=== PATIENT | female | born 1960 | race Caucasian/White ===

== ENCOUNTER 2018-05-18 22:10 | Emergency (ER) | payer OTHER ==
[2018-05-18] MEDS ORDERED: ONDANSETRON 4 MG/2 ML VIAL ONE (23:06)
[2018-05-18 23:44] LABS: Absolute Lymphocytes (CBC) 3.4 K/uL (0.7-4.9); Absolute Monocytes 0.7 K/uL (0.1-1.3); Absolute Neutrophil 6.1 K/uL (1.8-8.0); Eosinophils % 4.8 % (0-4.4); Lymphocytes % 31.5 % (15.3-44.8); MPV 10.2 fL (7.6-11.3); Monocytes % 6.4 % (3.3-12.3); RBC Red Blood Cell Count 5.13 M/uL (3.86-4.86)
[2018-05-18 23:57] LABS: Urine Blood NEGATIVE (NEG); Urine Glucose NEGATIVE (NEG); Urine Protein NEGATIVE (NEG); Urine Specific Gravity 1.025 (1.005-1.030); Urine pH 5.5 (5.0-7.0)
[2018-05-19 00:14] LABS: ALT/SGPT 67 U/L (12-78); AST/SGOT 45 U/L (15-37); Albumin 3.3 g/dL (3.4-5.0); Alkaline Phosphatase 183 U/L (45-117); BUN Blood Urea Nitrogen 12 mg/dL (7-18); Bicarbonate 26 mmol/L (21-32); Bilirubin Direct < 0.1 mg/dL (0-0.2); Bilirubin Total 0.3 mg/dL (0.2-1.0); Glucose Level 107 mg/dL (74-106); Lipase 104 U/L (73-393); Potassium 4.5 mmol/L (3.5-5.1); Protein, Total 7.7 g/dL (6.4-8.2); Sodium Level 141 mmol/L (136-145)
--- NOTE | 2018-05-19 02:47 | EDPHYS ---
Physician Documentation [facility] Name: Nell Barrett Age: 58 yrs Sex: Female : 1960 Arrival Date: 05/18/2018 Time: 22:10 Bed 15 Private MD: ED Physician Jomar Wong HPI: 05/18 23:06 This 58 yrs old Female presents to ER via Ambulatory with complaints of R jr8 Side Pain, Vomiting/Diarrhea. 23:06 The patient presents with abdominal pain in the right upper quadrant, right lower jr8 quadrant. Onset: The symptoms/episode began/occurred acutely, yesterday. The symptoms do not radiate. Associated signs and symptoms: Pertinent positives: nausea, vomiting, and diarrhea. The symptoms are described as stabbing. Modifying factors: The symptoms are alleviated by nothing, the symptoms are aggravated by nothing. Severity of pain: At its worst the pain was moderate in the emergency department the pain is unchanged. The patient has not experienced similar symptoms in the past. The patient has not recently seen a physician. Historical: - Allergies: 22:31 PENICILLINS; fc - Home Meds: 22:31 Wellbutrin XL 300 mg Oral Tb24 1 tab once daily [Active]; Klonopin 1 mg Oral tab 1 tab fc as needed [Active]; omeprazole 40 mg Oral cpDR 1 cap once daily [Active]; Phenergan Oral 25 mg as needed [Active]; - PMHx: 22:31 ADD/ADHD; allergies; Anxiety; Depression; GERD; fc - Immunization history:: Last tetanus immunization: unknown, Pneumococcal vaccine is not up to date, Flu vaccine is up to date. - Social history:: Smoking status: Patient uses tobacco products, denies chronic smoking, but will smoke occasionally, Patient/guardian denies using alcohol, street drugs. - Ebola Screening: : Patient negative for fever greater than or equal to 101.5 degrees Fahrenheit, and additional compatible Ebola Virus Disease symptoms Patient denies exposure to infectious person Patient denies travel to an Ebola-affected area in the 21 days before illness onset. ROS: 23:06 Eyes: Negative for injury, pain, redness, and discharge, ENT: Negative for injury, jr8 pain, and discharge, Neck: Negative for injury, pain, and swelling, Cardiovascular: Negative for chest pain, palpitations, and edema, Respiratory: Negative for shortness of breath, cough, wheezing, and pleuritic chest pain, Back: Negative for injury and pain, MS/Extremity: Negative for injury and deformity, Skin: Negative for injury, rash, and discoloration, Neuro: Negative for headache, weakness, numbness, tingling, and seizure. 23:06 Abdomen/GI: Positive for abdominal pain, nausea, vomiting, and diarrhea, Negative for abdominal distension, anorexia, dysphagia, hematemesis, black/tarry stool, rectal pain, rectal bleeding, bowel incontinence, flatulence. Exam: 23:06 Eyes: Pupils equal round and reactive to light, extra-ocular motions intact. Lids and jr8 lashes normal. Conjunctiva and sclera are non-icteric and not injected. Cornea within normal limits. Periorbital areas with no swelling, redness, or edema. ENT: Nares patent. No nasal discharge, no septal abnormalities noted. Tympanic membranes are normal and external auditory canals are clear. Oropharynx with no redness, swelling, or masses, exudates, or evidence of obstruction, uvula midline. Mucous membranes moist. Neck: Trachea midline, no thyromegaly or masses palpated, and no cervical lymphadenopathy. Supple, full range of motion without nuchal rigidity, or vertebral point tenderness. No Meningismus. Cardiovascular: Regular rate and rhythm with a normal S1 and S2. No gallops, murmurs, or rubs. Normal PMI, no JVD. No pulse deficits. Respiratory: Lungs have equal breath sounds bilaterally, clear to auscultation and percussion. No rales, rhonchi or wheezes noted. No increased work of breathing, no retractions or nasal flaring. Back: No spinal tenderness. No costovertebral tenderness. Full range of motion. Skin: Warm, dry with normal turgor. Normal color with no rashes, no lesions, and no evidence of cellulitis. MS/ Extremity: Pulses equal, no cyanosis. Neurovascular intact. Full, normal range of motion. Neuro: Awake and alert, GCS 15, oriented to person, place, time, and situation. Cranial nerves II-XII grossly intact. Motor strength 5/5 in all extremities. Sensory grossly intact. Cerebellar exam normal. Normal gait. 23:06 Abdomen/GI: Inspection: obese Bowel sounds: active, all quadrants, Palpation: soft, in all quadrants, mild abdominal tenderness, in the anterior aspect of right lateral abdomen, rebound tenderness, is not appreciated, voluntary guarding, is not appreciated, involuntary guarding, is not appreciated, no appreciated organomegaly, Indicators: McBurney's point is not tender, Zhang's sign is negative, Liver: tenderness, is not appreciated. Vital Signs: 22:20 Weight 135.62 kg (R); Height 5 ft. 9 in. (175.26 cm) (R); Pain 7/10; fc 22:30 BP 138 / 91; Pulse 98; Resp 20 S; Temp 99.2(O); Pulse Ox 98% on R/A; cc3 23:15 BP 120 / 80; Pulse 86; Resp 19 S; Pulse Ox 98% on R/A; cc3 05/19 00:45 BP 128 / 94; Pulse 80; Resp 18 S; Pulse Ox 99% on R/A; cc3 01:12 BP 116 / 91; Pulse 80; Resp 18 S; Pulse Ox 98% on R/A; cc3 02:30 BP 120 / 97; Pulse 79; Resp 19 S; Pulse Ox 97% on R/A; cc3 03:10 BP 123 / 90; Pulse 81; Resp 18 S; Pulse Ox 98% on R/A; cc3 05/18 22:20 Body Mass Index 44.15 (135.62 kg, 175.26 cm) fc MDM: 05/18 22:28 Patient medically screened. jr8 05/19 02:46 Data reviewed: vital signs, nurses notes, lab test result(s), radiologic studies, CT jr8 scan, and as a result, I will discharge patient. Data interpreted: Pulse oximetry: on room air is 98 %. Interpretation: normal. Counseling: I had a detailed discussion with the patient and/or guardian regarding: the historical points, exam findings, and any diagnostic results supporting the discharge/admit diagnosis, lab results, radiology results, the need for outpatient follow up, a family practitioner, a computer information science professor, to return to the emergency department if symptoms worsen or persist or if there are any questions or concerns that arise at home. Response to treatment: the patient's symptoms have markedly improved after treatment, patient is well hydrated. 05/18 22:49 Order name: Basic Metabolic Panel; Complete Time: 00:46 jr8 05/18 22:49 Order name: CBC with Diff; Complete Time: 23:56 [facility] 05/18 22:49 Order name: Hepatic Function; Complete Time: 00:46 [facility] 05/18 22:49 Order name: Lipase; Complete Time: 00:46 [facility] 05/18 22:49 Order name: Influenza Screen (a \T\ B); Complete Time: 23:56 [facility] 05/18 22:49 Order name: IV Saline Lock; Complete Time: 23:40 [facility] 05/18 22:49 Order name: Labs collected and sent; Complete Time: 23:40 [facility] 05/18 22:49 Order name: Urine Dipstick-Ancillary (obtain specimen); Complete Time: 23:50 [facility] 05/18 23:52 Order name: Urine Dipstick--Ancillary (enter results); Complete Time: 00:46 [facility] 05/19 00:46 Order name: CT Abd/Pelvis - W/Contrast [facility] Administered Medications: 05/18 23:15 Drug: Zofran 4 mg Route: IVP; Site: right forearm; cc3 23:50 Follow up: Response: No adverse reaction; Nausea is decreased cc3 Disposition: 05/19 03:54 Co-signature as Attending Physician, Jomar Wong MD. Disposition: 05/19/18 02:47 Discharged to Home. Impression: Abdominal and pelvic pain, Gastroenteritis. - Condition is Stable. - Discharge Instructions: Abdominal Pain, Adult. - Prescriptions for Tramadol 50 mg Oral Tablet - take 1 tablet by ORAL route every 8 hours as needed; 12 tablet. promethazine 25 mg Oral Tablet - take 1 tablet by ORAL route every 6 hours As needed; 20 tablet. - Medication Reconciliation Form, Thank You Letter, Antibiotic Education, Prescription Opioid Use form. - Follow up: Private Physician; When: 5 - 6 days; Reason: Recheck today's complaints, Continuance of care, Re-evaluation by your physician. - Problem is new. - Symptoms have improved. Signatures: Dispatcher [employer] [facility] Tisha Nixon RN RN fc Roszak, Josh, PA PA 8 Jomar Wong MD MD Fidelina Shearer cc3 Corrections: (The following items were deleted from the chart) 00:17 05/18 22:50 Creatinine for Radiology+C.LAB.BRZ ordered. [facility] 05/19 03:28 02:47 05/19/2018 02:47 Discharged to Home. Impression: Abdominal and pelvic pain; cc3 Gastroenteritis. Condition is Stable. Forms are Medication Reconciliation Form, Thank You Letter, Antibiotic Education, Prescription Opioid Use. Follow up: Private Physician; When: 5 - 6 days; Reason: Recheck today's complaints, Continuance of care, Re-evaluation by your physician. Problem is new. Symptoms have improved. jr8
--- NOTE | 2018-05-19 02:47 | ER ---
Nurse's Notes [facility] Name: Nell Barrett Age: 58 yrs Sex: Female : 1960 Arrival Date: 05/18/2018 Time: 22:10 Bed 15 Private MD: Diagnosis: Abdominal and pelvic pain;Gastroenteritis Presentation: 05/18 22:20 Presenting complaint: Patient states: that she is having right sided abd pain, nausea, fc vomiting and diarrhea that started approx 1 week ago. Also having orange urine and burning with urination. Transition of care: patient was not received from another setting of care. Onset of symptoms was May 11, 2018. Risk Assessment: Do you want to hurt yourself or someone else? Patient reports no desire to harm self or others. Initial Sepsis Screen: Does the patient meet any 2 criteria? No. Patient's initial sepsis screen is negative. Does the patient have a suspected source of infection? No. Patient's initial sepsis screen is negative. Care prior to arrival: None. 22:20 Method Of Arrival: Ambulatory fc 22:20 Acuity: IRVIN 3 fc Triage Assessment: 22:30 GI: Reports lower abdominal pain, diarrhea, nausea, vomiting, right side. cc3 Historical: - Allergies: 22:31 PENICILLINS; fc - Home Meds: 22:31 Wellbutrin XL 300 mg Oral Tb24 1 tab once daily [Active]; Klonopin 1 mg Oral tab 1 tab fc as needed [Active]; omeprazole 40 mg Oral cpDR 1 cap once daily [Active]; Phenergan Oral 25 mg as needed [Active]; - PMHx: 22:31 ADD/ADHD; allergies; Anxiety; Depression; GERD; fc - Immunization history:: Last tetanus immunization: unknown, Pneumococcal vaccine is not up to date, Flu vaccine is up to date. - Social history:: Smoking status: Patient uses tobacco products, denies chronic smoking, but will smoke occasionally, Patient/guardian denies using alcohol, street drugs. - Ebola Screening: : Patient negative for fever greater than or equal to 101.5 degrees Fahrenheit, and additional compatible Ebola Virus Disease symptoms Patient denies exposure to infectious person Patient denies travel to an Ebola-affected area in the 21 days before illness onset. Screenin:25 Abuse screen: Denies threats or abuse. Nutritional screening: No deficits noted. fc Tuberculosis screening: No symptoms or risk factors identified. Fall Risk None identified. Assessment: 22:30 General: Appears in no apparent distress. comfortable, Behavior is calm, cooperative, cc3 appropriate for age. Pain: Complains of pain in anterior aspect of right lateral abdomen. Neuro: Level of Consciousness is awake, alert, obeys commands, Oriented to person, place, time, situation, Appropriate for age. Cardiovascular: Denies chest pain. Respiratory: Airway is patent Respiratory effort is even, unlabored, Respiratory pattern is regular, symmetrical. GI: Abdomen is round obese. : No signs and/or symptoms were reported regarding the genitourinary system. EENT: No signs and/or symptoms were reported regarding the EENT system. Derm: Rash noted that is red, on bilateral upper and lower extremities. Musculoskeletal: Circulation, motion, and sensation intact. Range of motion: intact in all extremities. 23:15 Reassessment: Patient appears in no apparent distress at this time. Patient and/or cc3 family updated on plan of care and expected duration. Pain level reassessed. Patient is alert, oriented x 3, equal unlabored respirations, skin warm/dry/pink. 05/19 00:30 Reassessment: Patient appears in no apparent distress at this time. Patient and/or cc3 family updated on plan of care and expected duration. Pain level reassessed. Patient is alert, oriented x 3, equal unlabored respirations, skin warm/dry/pink. 01:18 Reassessment: Patient appears in no apparent distress at this time. Patient and/or cc3 family updated on plan of care and expected duration. Pain level reassessed. Patient is alert, oriented x 3, equal unlabored respirations, skin warm/dry/pink. 02:20 Reassessment: Patient appears in no apparent distress at this time. Patient and/or cc3 family updated on plan of care and expected duration. Pain level reassessed. Patient is alert, oriented x 3, equal unlabored respirations, skin warm/dry/pink. Patient came back from CT scan department. 03:20 Reassessment: Patient appears in no apparent distress at this time. Patient and/or cc3 family updated on plan of care and expected duration. Pain level reassessed. Patient is alert, oriented x 3, equal unlabored respirations, skin warm/dry/pink. KARL Solis discharged the patient home with prescription given. IV cannula removed and patient left ER vitally stable and ambulatory. Vital Signs: 05/18 22:20 Weight 135.62 kg (R); Height 5 ft. 9 in. (175.26 cm) (R); Pain 7/10; fc 22:30 BP 138 / 91; Pulse 98; Resp 20 S; Temp 99.2(O); Pulse Ox 98% on R/A; cc3 23:15 BP 120 / 80; Pulse 86; Resp 19 S; Pulse Ox 98% on R/A; cc3 05/19 00:45 BP 128 / 94; Pulse 80; Resp 18 S; Pulse Ox 99% on R/A; cc3 01:12 BP 116 / 91; Pulse 80; Resp 18 S; Pulse Ox 98% on R/A; cc3 02:30 BP 120 / 97; Pulse 79; Resp 19 S; Pulse Ox 97% on R/A; cc3 03:10 BP 123 / 90; Pulse 81; Resp 18 S; Pulse Ox 98% on R/A; cc3 05/18 22:20 Body Mass Index 44.15 (135.62 kg, 175.26 cm) ED Course: 05/18 22:10 Patient arrived in ED. am2 22:20 Arm band placed on Patient placed in an exam room, on a stretcher. fc 22:25 Patient has correct armband on for positive identification. Placed in gown. Bed in low fc position. Call light in reach. 22:25 No provider procedures requiring assistance completed. fc 22:27 Fidelina Shearer is Primary Nurse. cc3 22:28 Kevin Solis PA is PHCP. jr8 22:28 Jomar Wong MD is Attending Physician. jr8 22:28 Triage completed. fc 23:15 Inserted saline lock: 20 gauge in right forearm, using aseptic technique. Blood cc3 collected. 05/19 01:[address] via wheelchair. kw1 02:10 CT completed. Patient tolerated procedure well. Patient moved back from CT. kw1 02:10 CT Abd/Pelvis - W/Contrast In Process Unspecified. EDMS 03:20 IV discontinued, intact, bleeding controlled, No redness/swelling at site. Pressure cc3 dressing applied. Administered Medications: 05/18 23:15 Drug: Zofran 4 mg Route: IVP; Site: right forearm; cc3 23:50 Follow up: Response: No adverse reaction; Nausea is decreased cc3 Outcome: 05/19 02:47 Discharge ordered by MD. lopez 03:20 Discharged to home ambulatory. cc3 03:20 Condition: stable 03:20 Discharge instructions given to patient, Instructed on discharge instructions, follow up and referral plans. medication usage, Demonstrated understanding of instructions, follow-up care, medications, Prescriptions given X 2. 03:28 Patient left the ED. cc3 Signatures: Dispatcher [employer] EDMS Tisha Nixon, RN RN Kevin Sinclair PA PA jr8 Yarelis Baez Kimberly kw1 Fidelina Shearer cc3
--- NOTE | 2018-05-19 08:42 | RAD REPORT ---
EXAM DESCRIPTION: CT - Abdomen Pelvis W Contrast - 05/19/2018 7:29 am CLINICAL HISTORY: Right-sided abdominal pain, dysuria A preliminary report was provided at the time of the study and reviewed prior to final report. COMPARISON: CT imaging April 2014 TECHNIQUE: Biphasic, helical CT imaging of the abdomen and pelvis was performed following 100 ml non -ionic IV contrast. Oral contrast was given. All CT scans are performed using dose optimization technique as appropriate and may include automated exposure control or mA/KV adjustment according to patient size. FINDINGS: No suspicious findings in the lung bases. Diffuse fatty infiltration of the liver noted. No focal liver lesion. Spleen and pancreas show no don picious findings. Gallbladder and biliary tree are also without suspicious finding. Gallstones can be occult on CT imaging. Dx Symmetric renal function is seen with no hydronephrosis or suspicious renal mass. No pyelonephritis o r acute parenchymal process. Urinary bladder is contracted limiting assessment. Ovaries and uterus sh ow no suspicious finding. No adrenal abnormalities. No dilated bowel loops or bowel wall thickening. No appendicitis findings. There is fecalized content of the distal ileum. No free air, free fluid or inflammatory stranding. No hernia, mass or bulky ly mphadenopathy. No suspicious bony findings. IMPRESSION: Contrast enhanced CT abdomen and pelvis showing no acute or emergent finding. Diffuse fatty infiltration of the liver noted. Additional nonacute findings detailed in the body of t he report.
== END 2018-05-19 03:28 | disposition home or self-care (01) ==
LOC: ER 22:10
DX: K52.9 Noninfective gastroenteritis and colitis, unspecified (principal); F41.9 Anxiety disorder, unspecified; F32.9 Major depressive disorder, single episode, unspecified; F90.9 Attention-deficit hyperactivity disorder, unspecified type; Z72.0 Tobacco use
CPT/HCPCS: 36415; 74177; 80048; 80076; 81003; 83690; 85025; 87804 ×2; 96374; 99284; J2405; Q9967

== ENCOUNTER 2018-10-05 23:28 | Emergency (ER) | payer OTHER ==
--- NOTE | 2018-10-06 00:09 | EDPHYS ---
Physician Documentation [facility] Name: Nell Barrett Age: 58 yrs Sex: Female : 1960 Arrival Date: 10/05/2018 Time: 23:29 Bed 27 Private MD: GAUTAM Physician Keith Montes HPI: 10/05 23:55 This 58 yrs old Female presents to ER via Ambulatory with complaints of Ear cp Pain, Drainage From Ear. 23:55 The patient presents with drainage, that is purulent, hearing loss, pain, that is cp acute, tenderness. The complaints affect the left ear. Onset: The symptoms/episode began/occurred last night. Associated signs and symptoms: Pertinent negatives: cough, fever, lightheadedness, sinus trouble, sore throat, vertigo, vomiting. Severity of symptoms: in the emergency department the symptoms are unchanged despite home interventions. Historical: - Allergies: 23:39 PENICILLINS; ed1 - Home Meds: 23:39 Wellbutrin XL 300 mg Oral Tb24 1 tab once daily [Active]; Lipitor Oral [Active]; ed1 omeprazole 40 mg Oral cpDR 1 cap once daily [Active]; Methascope [Active]; Xanax Oral as needed [Active]; - PMHx: 23:39 ADD/ADHD; allergies; Anxiety; Depression; GERD; ed1 - PSHx: 23:39 Unable to obtain; ed1 - Immunization history:: Adult Immunizations unknown. - Social history:: Smoking status: Patient/guardian denies using tobacco. - Ebola Screening: : Patient negative for fever greater than or equal to 101.5 degrees Fahrenheit, and additional compatible Ebola Virus Disease symptoms Patient denies exposure to infectious person Patient denies travel to an Ebola-affected area in the 21 days before illness onset No symptoms or risks identified at this time. ROS: 23:57 Constitutional: Negative for body aches, chills, fever, poor PO intake. cp 23:57 Eyes: Negative for injury, pain, redness, and discharge. cp 23:57 ENT: Positive for drainage from ear(s), ear pain, hearing loss, Negative for rhinorrhea, sinus congestion, sinus pain, sore throat, difficulty swallowing, difficulty handling secretions. 23:57 Neck: Negative for pain with movement, pain at rest, stiffness. 23:57 Respiratory: Negative for cough, shortness of breath, wheezing. 23:57 Abdomen/GI: Negative for nausea and vomiting, constipation. 23:57 Skin: Negative for cellulitis, rash. 23:57 Neuro: Negative for dizziness, headache, weakness. 23:57 All other systems are negative. Exam: 10/06 00:03 Constitutional: The patient appears in no acute distress, alert, awake, non-toxic, well cp developed, well nourished, uncomfortable. 00:03 Head/Face: Normocephalic, atraumatic. cp 00:03 Eyes: Periorbital structures: appear normal, Conjunctiva: normal, no exudate, no injection, Sclera: no appreciated abnormality, Lids and lashes: appear normal, bilaterally. 00:03 ENT: External ear(s): pain with movement, that is severe, of the left ear canal, swelling, that is moderate, of the left ear canal, Ear canal(s): purulent discharge, in the left canal, swelling, that is moderate, of the left canal, TM's: bulging, on the left, dullness, on the left, Examination of the other ear shows no obvious abnormality, Nose: is normal, Mouth: is normal, Posterior pharynx: is normal, airway is patent, no erythema, no exudate. 00:03 Neck: ROM/movement: is normal, is supple, without pain, no range of motions limitations, no meningismus, no nuchal rigidity. 00:03 Chest/axilla: Inspection: normal. 00:03 Cardiovascular: Rate: tachycardic. 00:03 Respiratory: the patient does not display signs of respiratory distress, Respirations: normal. 00:03 Skin: no rash present. 00:03 Neuro: Orientation: to person, place \T\ time. Mentation: is normal, Cerebellar function: is grossly normal, Motor: moves all fours, strength is normal, Gait: is steady. Vital Signs: 10/05 23:39 BP 159 / 118; Pulse 102; Resp 20; Temp 97.4; Pulse Ox 93% on R/A; Weight 139.25 kg; ed1 Height 5 ft. 9 in. (175.26 cm); Pain 7/10; 10/06 00:30 BP 150 / 106; Pulse 98; Resp 17 S; Temp 97.8(O); Pulse Ox 96% on R/A; ca1 02:04 BP 145 / 108; Pulse 95; Resp 15; Temp 98; Pulse Ox 96% ; rv 10/05 23:39 Body Mass Index 45.34 (139.25 kg, 175.26 cm) ed1 MDM: 10/05 23:53 Patient medically screened. cp 10/06 00:00 Differential diagnosis: otitis media, otitis externa, ruptured TM, foreign body, cp cerumen impaction, barotrauma . 00:08 Data reviewed: vital signs, nurses notes. cp 00:08 Counseling: I had a detailed discussion with the patient and/or guardian regarding: the cp historical points, exam findings, and any diagnostic results supporting the discharge/admit diagnosis, the need for outpatient follow up, an ENT specialist, to return to the emergency department if symptoms worsen or persist or if there are any questions or concerns that arise at home. Administered Medications: 00:02 Drug: Tylenol #3 (300 mg-30 mg) 2 tabs Route: PO; ca1 00:37 Follow up: Response: No adverse reaction; Pain is decreased ca1 00:05 Drug: Ibuprofen 800 mg Route: PO; ca1 00:37 Follow up: Response: No adverse reaction; Pain is decreased ca1 00:05 Drug: Cipro 500 mg Route: PO; ca1 00:37 Follow up: Response: No adverse reaction ca1 Disposition: 10/06/18 00:08 Discharged to Home. Impression: Otitis externa in other diseases classified elsewhere, left ear. - Condition is Stable. - Discharge Instructions: Otitis Externa. - Prescriptions for Ibuprofen 800 mg Oral Tablet - take 1 tablet by ORAL route every 8 hours As needed take with food; 30 tablet. Cipro 500 mg Oral Tablet - take 1 tablet by ORAL route every 12 hours for 10 days; 20 tablet. Ciprodex 0.3- 0.1 % Otic Drops, Suspension - instill 4 drop by OTIC route every 12 hours for 7 days , for ears ONLY; 1 Container. Tylenol- Codeine #3 300-30 mg Oral Tablet - take 2 tablets by ORAL route every 8 hours As needed; 12 tablet. - Medication Reconciliation Form, Thank You Letter, Antibiotic Education, Prescription Opioid Use form. - Follow up: Liz Willis MD; When: 1 week; Reason: Recheck today's complaints. - Problem is new. - Symptoms have improved. Addendum: 10/07/2018 06:40 Co-signature as Attending Physician, Keith Montes MD I agree with the assessment and c serna plan of care. Signatures: Keith Montes MD MD cha Riggs, Erika RN RN ed1 Keith Cortez PA PA cp Amauri Ballard RN RN rv Acob, Myah RN RN ca1 Corrections: (The following items were deleted from the chart) 10/06 02:06 00:08 10/06/2018 00:08 Discharged to Home. Impression: Otitis externa in other diseases rv classified elsewhere, left ear. Condition is Stable. Forms are Medication Reconciliation Form, Thank You Letter, Antibiotic Education, Prescription Opioid Use. Follow up: Liz Willis; When: 1 week; Reason: Recheck today's complaints. Problem is new. Symptoms have improved. cp
--- NOTE | 2018-10-06 00:09 | ER ---
Nurse's Notes [facility] Name: Nell Barrett Age: 58 yrs Sex: Female : 1960 Arrival Date: 10/05/2018 Time: 23:29 Bed 27 Private MD: Diagnosis: Otitis externa in other diseases classified elsewhere, left ear Presentation: 10/05 23:35 Presenting complaint: Patient states: My left ear hurts and it is oozing. This started ed1 last night. Transition of care: patient was not received from another setting of care. Onset of symptoms was October 05, 2018. Risk Assessment: Do you want to hurt yourself or someone else? Patient reports no desire to harm self or others. Initial Sepsis Screen: Does the patient meet any 2 criteria? No. Patient's initial sepsis screen is negative. Does the patient have a suspected source of infection? No. Patient's initial sepsis screen is negative. Care prior to arrival: None. 23:35 Method Of Arrival: Ambulatory ed1 23:35 Acuity: IRVIN 4 ed1 Triage Assessment: 23:39 General: Appears in no apparent distress. Behavior is calm, cooperative. Pain: ed1 Complains of pain in left ear Pain currently is 7 out of 10 on a pain scale. EENT: Reports pain in left ear. Historical: - Allergies: 23:39 PENICILLINS; ed1 - Home Meds: 23:39 Wellbutrin XL 300 mg Oral Tb24 1 tab once daily [Active]; Lipitor Oral [Active]; ed1 omeprazole 40 mg Oral cpDR 1 cap once daily [Active]; Methascope [Active]; Xanax Oral as needed [Active]; - PMHx: 23:39 ADD/ADHD; allergies; Anxiety; Depression; GERD; ed1 - PSHx: 23:39 Unable to obtain; ed1 - Immunization history:: Adult Immunizations unknown. - Social history:: Smoking status: Patient/guardian denies using tobacco. - Ebola Screening: : Patient negative for fever greater than or equal to 101.5 degrees Fahrenheit, and additional compatible Ebola Virus Disease symptoms Patient denies exposure to infectious person Patient denies travel to an Ebola-affected area in the 21 days before illness onset No symptoms or risks identified at this time. Screenin:50 Abuse screen: Denies threats or abuse. Denies injuries from another. Nutritional ca1 screening: No deficits noted. Tuberculosis screening: No symptoms or risk factors identified. Fall Risk None identified. Assessment: 23:50 General: Appears in no apparent distress. uncomfortable, Behavior is calm, cooperative, ca1 appropriate for age. Pain: Complains of pain in left ear Pain currently is 8 out of 10 on a pain scale. Pain began 2-3 days ago. Neuro: Level of Consciousness is awake, alert, obeys commands, Oriented to person, place, time, situation. Cardiovascular: Heart tones S1 S2 present Capillary refill < 3 seconds Patient's skin is warm and dry. Respiratory: Airway is patent Respiratory effort is even, unlabored, Respiratory pattern is regular, symmetrical, Breath sounds are clear bilaterally. GI: No deficits noted. No signs and/or symptoms were reported involving the gastrointestinal system. : No deficits noted. No signs and/or symptoms were reported regarding the genitourinary system. EENT: No deficits noted. No signs and/or symptoms were reported regarding the EENT system. Derm: Skin is intact, is healthy with good turgor, Skin is pink, warm \T\ dry. Musculoskeletal: Circulation, motion, and sensation intact. Capillary refill < 3 seconds. 10/06 00:40 Reassessment: Patient appears in no apparent distress at this time. Patient is alert, ca1 oriented x 3, equal unlabored respirations, skin warm/dry/pink. Awaiting ride home. Vital Signs: 10/05 23:39 BP 159 / 118; Pulse 102; Resp 20; Temp 97.4; Pulse Ox 93% on R/A; Weight 139.25 kg; ed1 Height 5 ft. 9 in. (175.26 cm); Pain 7/10; 10/06 00:30 BP 150 / 106; Pulse 98; Resp 17 S; Temp 97.8(O); Pulse Ox 96% on R/A; ca1 02:04 BP 145 / 108; Pulse 95; Resp 15; Temp 98; Pulse Ox 96% ; rv 10/05 23:39 Body Mass Index 45.34 (139.25 kg, 175.26 cm) ed1 ED Course: 10/05 23:29 Patient arrived in ED. am2 23:36 Triage completed. ed1 23:39 Arm band placed on. ed1 23:50 Patient has correct armband on for positive identification. Bed in low position. Call ca1 light in reach. Side rails up X 1. Pulse ox on. NIBP on. Warm blanket given. 23:53 Keith Cortez PA is PHCP. cp 23:53 Keith Montes MD is Attending Physician. cp 10/06 00:07 Liz Willis MD is Referral Physician. cp 00:16 Myah Dial RN is Primary Nurse. ca1 00:40 No provider procedures requiring assistance completed. Patient did not have IV access ca1 during this emergency room visit. Administered Medications: 00:02 Drug: Tylenol #3 (300 mg-30 mg) 2 tabs Route: PO; ca1 00:37 Follow up: Response: No adverse reaction; Pain is decreased ca1 00:05 Drug: Ibuprofen 800 mg Route: PO; ca1 00:37 Follow up: Response: No adverse reaction; Pain is decreased ca1 00:05 Drug: Cipro 500 mg Route: PO; ca1 00:37 Follow up: Response: No adverse reaction ca1 Outcome: 00:08 Discharge ordered by MD. cp 02:04 Discharged to home ambulatory, patient taken by Bela to the car with the patient's rv daughter driving. 02:04 Condition: good 02:04 Discharge instructions given to patient, Instructed on discharge instructions, follow up and referral plans. medication usage, Demonstrated understanding of instructions, follow-up care, medications, Prescriptions given X 3. 02:06 Patient left the ED. rv Signatures: Dilma Kaba RN RN ed1 Keith Cortez PA PA cp Yarelis Baez am2 Amauri Ballard RN RN rv Myah Dial RN RN ca1 Corrections: (The following items were deleted from the chart) 00:44 10/05 23:40 General: Appears in no apparent distress. uncomfortable, Behavior is calm, ca1 cooperative, appropriate for age, ca1 10/06 00:44 10/05 23:40 Pain: Complains of pain in left ear Pain currently is 8 out of 10 on a pain ca1 scale. Pain began 2-3 days ago. ca1 10/06 00:44 10/05 23:40 Neuro: Level of Consciousness is awake, alert, obeys commands, Oriented to ca1 person, place, time, situation, ca1 10/06 00:44 10/05 23:40 Cardiovascular: Heart tones S1 S2 present Capillary refill < 3 seconds ca1 Patient's skin is warm and dry. ca1 10/06 00:44 10/05 23:40 Respiratory: Airway is patent Respiratory effort is even, unlabored, ca1 Respiratory pattern is regular, symmetrical, Breath sounds are clear bilaterally. ca1 10/07 99:44 10/05 23:40 GI: No deficits noted. No signs and/or symptoms were reported involving the ca1 gastrointestinal system. ca1 10/07 99:44 10/05 23:40 : No deficits noted. No signs and/or symptoms were reported regarding the ca1 genitourinary system. ca1 10/07 99:44 10/05 23:40 EENT: No deficits noted. No signs and/or symptoms were reported regarding ca1 the EENT system. ca1 10/07 99:44 10/05 23:40 Derm: Skin is intact, is healthy with good turgor, Skin is pink, warm \T\ ca1 dry. ca1 10/07 99:44 10/05 23:40 Musculoskeletal: Circulation, motion, and sensation intact. Capillary ca1 refill < 3 seconds, ca1
[2018-10-06] MEDS ORDERED: CIPROFLOXACIN HCL 500 MG TAB ONE (00:31)
[2018-10-06] MEDS ORDERED: CODEINE 30MG/APAP 300MG TAB ONE (00:32)
[2018-10-06] MEDS ORDERED: IBUPROFEN 400 MG TAB ONE (00:32)
== END 2018-10-06 02:06 | disposition home or self-care (01) ==
LOC: ER 23:28
DX: H62.42 Otitis externa in other diseases classified elsewhere, left ear (principal); F90.9 Attention-deficit hyperactivity disorder, unspecified type; F41.9 Anxiety disorder, unspecified; K21.9 Gastro-esophageal reflux disease without esophagitis; Z88.0 Allergy status to penicillin
CPT/HCPCS: 99283

== ENCOUNTER 2019-01-10 20:38 | Emergency (ER) | payer OTHER ==
[2019-01-10 21:33] LABS: Absolute Lymphocytes (CBC) 3.3 K/uL (0.7-4.9); Basophils % 0.9 % (0-1.3); Hematocrit 42.8 % (36.0-45.0); Lymphocytes % 29.6 % (15.3-44.8); MPV 10.1 fL (7.6-11.3); Protime INR 0.99; RBC Red Blood Cell Count 5.03 M/uL (3.86-4.86)
[2019-01-10 21:49] LABS: ALT/SGPT 55 U/L (12-78); AST/SGOT 30 U/L (15-37); Albumin 3.3 g/dL (3.4-5.0); Alkaline Phosphatase 182 U/L (45-117); BUN Blood Urea Nitrogen 11 mg/dL (7-18); Bicarbonate 28 mmol/L (21-32); Bilirubin Direct < 0.1 mg/dL (0-0.2); Bilirubin Total 0.2 mg/dL (0.2-1.0); Glucose Level 104 mg/dL (74-106); Magnesium 2.3 mg/dL (1.8-2.4); NT PRO-BNP 53 pg/mL (<125); Potassium 3.5 mmol/L (3.5-5.1); Protein, Total 7.7 g/dL (6.4-8.2); Sodium Level 140 mmol/L (136-145); Troponin (Emerg Dept Use Only) < 0.02 ng/mL (0.0-0.045)
--- NOTE | 2019-01-10 21:59 | RAD REPORT ---
EXAM DESCRIPTION: RAD - Chest Single View - 01/10/2019 9:31 pm CLINICAL HISTORY: CHEST PAIN Chest pain. COMPARISON: Abdomen Exam Limited dated 01/09/2019Chest Single View dated 11/13/2016; Chest Pa And Lat (2 Views) dated 08/14/2016; CHEST PA AND LAT 2 VIEW dated 05/16/2015 FINDINGS: Portable technique limits examination quality. The lungs are grossly clear. The heart is mildly prominent in size. No displaced fractures. IMPRESSION: No acute intrathoracic process suspected.
[2019-01-10 23:17] LABS: Urine Blood NEGATIVE (NEG); Urine Glucose NEGATIVE (NEG); Urine Protein NEGATIVE (NEG); Urine pH 5.5 (5.0-7.0)
--- NOTE | 2019-01-11 00:53 | ER ---
Nurse's Notes [facility] Name: Nell Barrett Age: 58 yrs Sex: Female : 1960 Arrival Date: 01/10/2019 Time: 20:43 Bed 26 Private MD: Mor Preston H Diagnosis: Chest pain, unspecified Presentation: 01/10 21:03 Presenting complaint: Patient states: Pt reports pounding chest pain that radiates to ea her back, pain in cam lower feet, pt states she was lying on her bed and started having pounding chest pain. Pt states " I am on a new diuretic and I think my potassium is low". Transition of care: patient was not received from another setting of care. Onset of symptoms was January 10, 2019. Risk Assessment: Do you want to hurt yourself or someone else? Patient reports no desire to harm self or others. Initial Sepsis Screen: Does the patient meet any 2 criteria? No. Patient's initial sepsis screen is negative. Does the patient have a suspected source of infection? No. Patient's initial sepsis screen is negative. Care prior to arrival: None. 21:03 Method Of Arrival: Wheelchair ea 21:03 Acuity: IRVIN 3 ea Triage Assessment: 21:06 General: Appears uncomfortable, Behavior is appropriate for age. Pain: Complains of ea pain in epigastric area Pain radiates to low back area Pain currently is 8 out of 10 on a pain scale. Neuro: Level of Consciousness is awake, alert, obeys commands, Oriented to person, place, time, situation. Cardiovascular: Patient's skin is warm and dry. Respiratory: Airway is patent Respiratory effort is even, unlabored, Respiratory pattern is regular, symmetrical. Derm: Skin is pink, warm \\T\\ dry. Historical: - Allergies: 21:09 PENICILLINS; ea - Home Meds: 21:09 Xanax Oral as needed [Active]; Wellbutrin XL 300 mg Oral Tb24 1 tab once daily ea [Active]; Lasix 40 mg oral tab [Active]; omeprazole 40 mg Oral cpDR 1 cap once daily [Active]; - PMHx: 21:09 GERD; Depression; Anxiety; allergies; ADD/ADHD; ea - PSHx: 21:09 Unable to obtain; ea - Immunization history:: Adult Immunizations up to date. - Social history:: Smoking status: Patient/guardian denies using tobacco. - Ebola Screening: : No symptoms or risks identified at this time. Screenin:08 Abuse screen: Denies threats or abuse. Nutritional screening: No deficits noted. ea Tuberculosis screening: No symptoms or risk factors identified. Fall Risk None identified. Assessment: 21:17 Reassessment:. General: Appears uncomfortable, Behavior is calm, cooperative. Pain: tr5 Complains of pain in chest Pain radiates to back Pain currently is 7 out of 10 on a pain scale. Quality of pain is described as aching, heavy, Pain began gradually. Neuro: Level of Consciousness is awake, alert, Oriented to person, place, time, Supervisor [employer] are equal bilaterally Moves all extremities. Cardiovascular: Heart tones present Capillary refill < 3 seconds Pulses are all present. Edema is absent. Respiratory: Airway is patent Respiratory effort is even, unlabored, Respiratory pattern is regular, symmetrical. GI: No signs and/or symptoms were reported involving the gastrointestinal system. : No signs and/or symptoms were reported regarding the genitourinary system. EENT: No signs and/or symptoms were reported regarding the EENT system. Derm: No signs and/or symptoms reported regarding the dermatologic system. Skin is intact, Skin is dry, Skin is normal. Musculoskeletal: Capillary refill < 3 seconds, Range of motion: intact in all extremities. 22:27 Reassessment: Pt went to Ct for imaging. wh 22:55 Reassessment: Patient appears in no apparent distress at this time. Patient and/or wh family updated on plan of care and expected duration. Pain level reassessed. Patient is alert, oriented x 3, equal unlabored respirations, skin warm/dry/pink. 23:57 Reassessment: Patient appears in no apparent distress at this time. Patient and/or wh family updated on plan of care and expected duration. Pain level reassessed. Patient is alert, oriented x 3, equal unlabored respirations, skin warm/dry/pink. Patient denies pain at this time. 01/11 01:04 Reassessment: Patient appears in no apparent distress at this time. Patient and/or wh family updated on plan of care and expected duration. Pain level reassessed. Patient is alert, oriented x 3, equal unlabored respirations, skin warm/dry/pink. Patient denies pain at this time. Vital Signs: 01/10 21:05 BP 149 / 86; Pulse 82; Resp 18; Temp 98; Pulse Ox 99% on R/A; Weight 131.09 kg; Height ea 5 ft. 9 in. (175.26 cm); Pain 9/10; 22:57 BP 130 / 97; Pulse 77; Resp 18; Pulse Ox 100% on R/A; wh 23:57 BP 107 / 84; Pulse 70; Resp 16; Pulse Ox 100% on R/A; wh 01/11 01:04 BP 112 / 83; Pulse 77; Resp 18; Pulse Ox 100% on R/A; wh 01/10 21:05 Body Mass Index 42.68 (131.09 kg, 175.26 cm) ea ED Course: 01/10 20:43 Patient arrived in ED. es 20:43 Mor Preston MD is Private Physician. es 20:59 Julio Williamson RN is Primary Nurse. tr5 21:00 [facility] pm1 21:00 Amilcar Wood MD is Attending Physician. pm1 21:05 Triage completed. ea 21:05 Inserted saline lock: 20 gauge in right hand, using aseptic technique. Blood collected. 21:07 Patient has correct armband on for positive identification. Bed in low position. Call ea light in reach. Pulse ox on. NIBP on. 21:07 Arm band placed on right wrist. Patient placed in an exam room, on a stretcher, on ea pulse oximetry. 21:31 XRAY Chest (1 view) In Process Unspecified. EDMS 23:01 CT Aorta for Dissection In Process Unspecified. EDTX 01/11 01:07 No provider procedures requiring assistance completed. IV discontinued, intact, wh bleeding controlled, No redness/swelling at site. Patient maintains SpO2 saturation greater than 95% on room air. Administered Medications: No medications were administered Outcome: 00:51 Discharge ordered by . pm1 01:08 Discharged to home ambulatory. 01:08 Condition: good 01:08 Discharge instructions given to patient, Instructed on discharge instructions, follow up and referral plans. POC Unspecified Chest Pain Demonstrated understanding of instructions, follow-up care, POC 01:12 Patient left the ED. Signatures: Dispatcher [employer] EDTX Jailene Luong Jac Toure NP RUBY DEVELOPER pm1 Ashlee Gutierrez, RN RN ea Olmna Schwarz Tommie, RN RN tr5
--- NOTE | 2019-01-11 00:54 | EDPHYS ---
Physician Documentation [facility] Name: Nell Barrett Age: 58 yrs Sex: Female : 1960 Arrival Date: 01/10/2019 Time: 20:43 Bed 26 Private MD: Mor Preston H ED Physician Amilcar Wood HPI: 01/10 22:00 This 58 yrs old Female presents to ER via Wheelchair with complaints of Chest pm1 Pain. 22:00 The patient or guardian reports chest pain that is located primarily in the mid-sternal pm1 area. Onset: today, 1700 to 1800. The pain does not radiate. Associated signs and symptoms: Pertinent positives: low back pain, Pertinent negatives: abdominal pain, cough, headache, nausea, shortness of breath, vomiting. The chest pain is described as sharp. Duration: The patient or guardian reports a single episode, that is now resolved. Historical: - Allergies: 21:09 PENICILLINS; ea - Home Meds: 21:09 Xanax Oral as needed [Active]; Wellbutrin XL 300 mg Oral Tb24 1 tab once daily ea [Active]; Lasix 40 mg oral tab [Active]; omeprazole 40 mg Oral cpDR 1 cap once daily [Active]; - PMHx: 21:09 GERD; Depression; Anxiety; allergies; ADD/ADHD; ea - PSHx: 21:09 Unable to obtain; ea - Immunization history:: Adult Immunizations up to date. - Social history:: Smoking status: Patient/guardian denies using tobacco. - Ebola Screening: : No symptoms or risks identified at this time. ROS: 22:05 Constitutional: Negative for fever, chills, and weight loss, Eyes: Negative for injury, pm1 pain, redness, and discharge, ENT: Negative for injury, pain, and discharge, Neck: Negative for injury, pain, and swelling, Respiratory: Negative for shortness of breath, cough, wheezing, and pleuritic chest pain, Abdomen/GI: Negative for abdominal pain, nausea, vomiting, diarrhea, and constipation, Back: Negative for injury and pain. 22:05 : Negative for injury, bleeding, discharge, and swelling, MS/Extremity: Negative for injury and deformity, Skin: Negative for injury, rash, and discoloration, Neuro: Negative for headache, weakness, numbness, tingling, and seizure. 22:05 Cardiovascular: Positive for chest pain, Negative for edema, orthopnea, palpitations. Exam: 22:05 Constitutional: This is a well developed, well nourished patient who is awake, alert, pm1 and in no acute distress. Head/Face: Normocephalic, atraumatic. Eyes: Pupils equal round and reactive to light, extra-ocular motions intact. Lids and lashes normal. Conjunctiva and sclera are non-icteric and not injected. Cornea within normal limits. Periorbital areas with no swelling, redness, or edema. ENT: Nares patent. No nasal discharge, no septal abnormalities noted. Tympanic membranes are normal and external auditory canals are clear. Oropharynx with no redness, swelling, or masses, exudates, or evidence of obstruction, uvula midline. Mucous membranes moist. Neck: Trachea midline, no thyromegaly or masses palpated, and no cervical lymphadenopathy. Supple, full range of motion without nuchal rigidity, or vertebral point tenderness. No Meningismus. 22:05 Cardiovascular: Regular rate and rhythm with a normal S1 and S2. No gallops, murmurs, or rubs. Normal PMI, no JVD. No pulse deficits. Respiratory: Lungs have equal breath sounds bilaterally, clear to auscultation and percussion. No rales, rhonchi or wheezes noted. No increased work of breathing, no retractions or nasal flaring. Abdomen/GI: Soft, non-tender, with normal bowel sounds. No distension or tympany. No guarding or rebound. No evidence of tenderness throughout. Back: No spinal tenderness. No costovertebral tenderness. Full range of motion. Skin: Warm, dry with normal turgor. Normal color with no rashes, no lesions, and no evidence of cellulitis. MS/ Extremity: Pulses equal, no cyanosis. Neurovascular intact. Full, normal range of motion. 22:05 Chest/axilla: Inspection: normal, Palpation: crepitus, is not appreciated, tenderness, of the just right of mid-sternal area, that totally reproduces the patient's complaints. Vital Signs: 21:05 BP 149 / 86; Pulse 82; Resp 18; Temp 98; Pulse Ox 99% on R/A; Weight 131.09 kg; Height ea 5 ft. 9 in. (175.26 cm); Pain 9/10; 22:57 BP 130 / 97; Pulse 77; Resp 18; Pulse Ox 100% on R/A; wh 23:57 BP 107 / 84; Pulse 70; Resp 16; Pulse Ox 100% on R/A; wh 01/11 01:04 BP 112 / 83; Pulse 77; Resp 18; Pulse Ox 100% on R/A; wh 01/10 21:05 Body Mass Index 42.68 (131.09 kg, 175.26 cm) ea MDM: 01/10 21:15 Patient medically screened. pm1 22:05 Data reviewed: vital signs. pm1 01/11 00:13 ED course: Patient did not want to wait for repeat troponin at 0100 to give a troponin pm1 drawn 4 hours apart from initial lab set. Explained to the patient the rationale and importance for doing that. Patient wanted to go home because she did not want to wait for the repeat troponin at that time. Therefore I offered to at least draw the troponin now since it should still have value with onset of chest pain between 1700 and 1800. 00:51 Data interpreted: Pulse oximetry: on room air is 100 %. Interpretation: normal. pm1 Counseling: I had a detailed discussion with the patient and/or guardian regarding: the historical points, exam findings, and any diagnostic results supporting the discharge/admit diagnosis, lab results, radiology results, the need for outpatient follow up, to return to the emergency department if symptoms worsen or persist or if there are any questions or concerns that arise at home. 01/10 21: Order name: Basic Metabolic Panel; Complete Time: 22: pm01/10 21: Order name: CBC with Diff; Complete Time: 22: pm01/10 21:01 Order name: LFT's; Complete Time: 22: pm01/10 21:01 Order name: Magnesium; Complete Time: 22: pm01/10 21: Order name: NT PRO-BNP; Complete Time: 22: pm01/10 21:01 Order name: PT-INR; Complete Time: 22: pm01/10 21:01 Order name: Troponin (emerg Dept Use Only); Complete Time: 22: pm01/10 21: Order name: XRAY Chest (1 view); Complete Time: 22:04 pm01/10 21:01 Order name: EKG; Complete Time: 21:02 pm1 01/10 21:01 Order name: Cardiac monitoring; Complete Time: 21:13 pm01/10 21:01 Order name: EKG - Nurse/Tech; Complete Time: 21:13 pm1 01/10 22:04 Order name: CT Aorta for Dissection pm1 01/10 22:50 Order name: Urine Dipstick--Ancillary (enter results); Complete Time: 23:41 mw2 01/10 23:42 Order name: Troponin (emerg Dept Use Only); Complete Time: 00:52 pm1 01/10 21:01 Order name: IV Saline Lock; Complete Time: 21:13 pm01/10 21:01 Order name: Labs collected and sent; Complete Time: 21:13 pm01/10 21:01 Order name: O2 Per Protocol; Complete Time: 21:13 pm01/10 21:01 Order name: O2 Sat Monitoring; Complete Time: 21:13 pm1 Administered Medications: No medications were administered Disposition: : Co-signature as Attending Physician, Amilcar Wood MD. tricia Disposition: 01/11/19 00:51 Discharged to Home. Impression: Chest pain, unspecified. - Condition is Stable. - Discharge Instructions: Nonspecific Chest Pain, Stress and Stress Management. - Medication Reconciliation Form, Thank You Letter, Antibiotic Education, Prescription Opioid Use form. - Follow up: Emergency Department; When: As needed; Reason: Worsening of condition. Follow up: Private Physician; When: 2 - 3 days; Reason: Recheck today's complaints, Continuance of care, Re-evaluation by your physician. - Problem is new. - Symptoms have improved. Signatures: Dispatcher [employer] EDAmilcar Randhawa MD MD pkJac Brewer, BLOOD BANK CALENDAR CONTROL CLERK BLOOD BANK CALENDAR CONTROL CLERK pm1 Ashlee Gutierrez, Olman Zuleta RN, ea Corrections: (The following items were deleted from the chart) 01:12 00:51 01/11/2019 00:51 Discharged to Home. Impression: Chest pain, unspecified. Condition is Stable. Forms are Medication Reconciliation Form, Thank You Letter, Antibiotic Education, Prescription Opioid Use. Follow up: Emergency Department; When: As needed; Reason: Worsening of condition. Follow up: Private Physician; When: 2 - 3 days; Reason: Recheck today's complaints, Continuance of care, Re-evaluation by your physician. Problem is new. Symptoms have improved. pm1
--- NOTE | 2019-01-11 07:46 | EKG ---
Test Date: 2019-01-10 Test Time: 21:10:04 Fur Buyer: TR MEASUREMENT RESULTS: Intervals: Rate: 74 ME: 128 QRSD: 88 QT: 390 QTc: 432 Aristes: P: 52 ME: 128 QRS: 16 T: 33 INTERPRETIVE STATEMENTS: Normal sinus rhythm Normal ECG Compared to ECG 01/31/2017 19:30:22 No significant changes Electronically Signed On 01-11-19 07:45:45 CDT by Aron Puga
--- NOTE | 2019-01-11 10:07 | RAD REPORT ---
EXAM DESCRIPTION: Angio Aorta For Dissection CLINICAL HISTORY: CHEST PAIN COMPARISON: None. TECHNIQUE: CT CHEST ABDOMEN PELVIS ANGIOGRAPHY WITH IV CONTRAST on 01/10/2019 10:04 PM CDT. MIPS ade nstructions were generated. This exam was performed according to our departmental dose-optimization program, which includes autom ated exposure control, adjustment of the mA and/or kV according to patient size and/or use of iterati ve reconstruction technique. FINDINGS: Vascular: Thoracic aorta is normal in course and caliber without aneurysm or dissection. P ulmonary arteries are adequately opacified without acute or chronic filling defects. Abdominal aorta is normal in course and caliber without aneurysm. Pelvic arteries are patent without aneurysm or occl usion. Chest: The heart is normal in size. There is no pericardial effusion. Intrathoracic lymph nodes are n ot enlarged. There is no pleural effusion, pleural thickening or pneumothorax. Central airways are patent. Lungs a re clear with no consolidation, mass or interstitial lung disease. Abdomen: The liver is normal in appearance. There is no biliary dilatation. Gallbladder is normal in appearance. The pancreas and spleen are normal in appearance. The adrenal glands and kidneys are unre markable. There is no free air. There is no retroperitoneal adenopathy. Pelvis: There is no bowel obstruction. Urinary bladder is unremarkable. There is no free fluid. Uteru s is normal in size. Appendix is normal. Skeleton: There are no acute osseous findings. No suspicious bony lesions. IMPRESSION: No aortic dissection or aneurysm. No pulmonary embolus. No acute process. Electronically signed by: Ricardo Swann MD 01/10/2019 11:16 PM CDT Due to temporary technical issues with the PACS/Fluency reporting system, reports are being signed by the in house radiologist as a courtesy to ensure prompt reporting. The interpreting radiologist is f ully responsible for the content of the report.
== END 2019-01-11 01:12 | disposition home or self-care (01) ==
LOC: ER 20:38
DX: R07.9 Chest pain, unspecified (principal); F32.9 Major depressive disorder, single episode, unspecified; F41.9 Anxiety disorder, unspecified; F90.9 Attention-deficit hyperactivity disorder, unspecified type; Z88.0 Allergy status to penicillin
CPT/HCPCS: 93005; 85025; 80048; 36415; 83735; 85610; 80076; 81003; 84484 ×2; 83880; 71275; 74175; 71045; 99284; Q9967

== ENCOUNTER 2019-07-07 07:13 | Day surgery (SDC) | payer OTHER ==
--- NOTE | 2019-07-06 12:06 | RAD REPORT ---
EXAM DESCRIPTION: RAD - Chest Pa And Lat (2 Views) - 07/06/2019 11:49 am CLINICAL HISTORY: preop COMPARISON: Portable chest December 2018 TECHNIQUE: Frontal and lateral views of the chest were obtained. FINDINGS: The lungs are clear. Interstitial pattern is prominent but changed. No acute failure or v olume overload. Heart size is normal and central vasculature is within normal limits. No pleural eff usion or pneumothorax seen. No acute bony finding noted. No aortic abnormality. IMPRESSION: No acute cardiopulmonary process. Patient has a mild chronic interstitial lung pattern matching prior studies.
[2019-07-07] MEDS ORDERED: CIPROFLOXACIN 400mg IV 400 MG/200 ML BAG IV ONE (07:51)
[2019-07-07] MEDS ORDERED: Ringers Lactate 1,000 ML IV ONE (07:51)
[2019-07-07] MEDS ORDERED: MIDAZOLAM HCL 2 MG/2 ML INJ ONE (08:11)
[2019-07-07] MEDS ORDERED: propofoL 200 MG/20 ML VIAL IV ONE (08:11)
[2019-07-07] MEDS ORDERED: FENTANYL CITR 100 MCG/2 ML ONE (08:11)
[2019-07-07] MEDS ORDERED: LIDOCAINE 2% MPF 5 ML VIAL ONE (08:11)
[2019-07-07] MEDS ORDERED: ONDANSETRON 4 MG/2 ML VIAL ONE ×2 (08:12→10:30)
[2019-07-07] MEDS ORDERED: BUPIVACAINE 0.5% PF 10 ML VIAL ONE (08:38)
[2019-07-07] MEDS ORDERED: Mastisol Adhesive Liq ONE (09:57)
[2019-07-07] MEDS: HYDROMORPHONE HCL 1 MG/ML INJ ONE ×6 (10:29→10:59)
[2019-07-07 10:47] VITALS: O2SAT 98
--- NOTE | 2019-07-07 11:03 | RAD REPORT ---
EXAM DESCRIPTION: US - Brst,Preop NL Wire Init w/Guid - 07/07/2019 8:29 am CLINICAL HISTORY: NEEDLE LOC Left breast mass COMPARISON: Breast Core BX w/US Guidance dated 06/23/2019 FINDINGS: Preoperative diagnosis: Left breast mass lateral aspect, 15 x 9 mm.. Post operative diagnosis: Same. Conscious Sedation: None Fluoroscopy time: None Contrast used: None Estimated blood loss: Minimal Specimens:Separately reported The left breast was prepped and draped in the usual sterile fashion. 1% lidocaine was infiltrated int o the subcutaneous tissues for local anesthesia. Real time ultrasound scanning of the left breast dem onstrated 15 x 9 mm hypoechoic mass lateral aspect 3 o'clock position.. Under ultrasound guidance, us ing a Bard preoperative wire localization device, a preoperative wire was placed into the mass. There were no complications. Wire positioning was discussed Dr. Abel. IMPRESSION: Successful preoperative ultrasound-guided left breast wire localization for surgery.
--- NOTE | 2019-07-07 11:14 | RAD REPORT ---
EXAM DESCRIPTION: US - Surgical Specimen - 07/07/2019 9:53 am CLINICAL HISTORY: LT BREAST MASS COMPARISON: Brst,Preop NL Wire Init w/Guid dated 07/07/2019 FINDINGS: Surgical specimen was retrieved after surgical resection. The mass of interest is localize d within the specimen. This was communicated to Dr. Abel.
[2019-07-07] MEDS ORDERED: HYDROCODONE/APAP 7.5/325 MG TAB PO ONE (11:45)
[2019-07-07] MEDS ORDERED: HYDROCODONE/APAP 7.5/325 MG TAB ONE (11:45)
--- NOTE | 2019-07-07 12:37 | OP ---
Date of Procedure: 07/07/2019 Surgeon: Anil Abel MD Title Insurance Examiner: MARY ALICE Shelley. Preoperative Diagnosis: Left breast mass. Postoperative Diagnosis: Left breast mass. Procedure: Needle localization, excision of left breast mass. Estimated Blood Loss: Minimal. Findings: As above. Anesthesia: General. Complications: None. Disposition: Patient tolerated the procedure in stable condition, taken to Recovery in good general condition. Operative Note: Patient was brought to the OR and placed in supine position. General anesthesia was begun. Patient was prepped and draped in usual sterile fashion. Patient had been needle localized prior and the case was discussed with prior to the surgery. The needle was in the 3 o 'clock position. A 3 cm transverse incision was made at the 3 o'clock position. Subcutaneous tissue divided. Tract of needle identified and core tissue at the needle excised, sent to Radiology, confi rmation obtained. Wound irrigated. Bleeding controlled with cautery and 3-0 chromic used for subcut aneous tissue and 3-0 chromic also used to close skin. Sterile dressing was applied. Patient was aw akened and taken to Recovery in good general condition. Discharge Note: The patient will go to day surgery and home when stable. Disposition: Home. Condition: Stable. Discharge Instructions: Resume home medications and diet. Activity as tolerated. No heavy lifting. Remove outer dressing in 2 days. Shower. Keep Steri-Strips on at all times. [facility] Call for appointment. [place] 7.5/325 p.o. q.4 p.r.n. pain. /MODL Voice ID: [id number] Report ID: [id number]
[2019-07-07 14:20] VITALS: BP 107/58; TEMP 97.9
== END 2019-07-07 12:45 | disposition home or self-care (01) ==
LOC: OR 07:13
PROVIDERS: ATTEND Surgery
PROC: 0HBU0ZZ Excision of Left Breast, Open Approach (ICD-10-PCS; principal; 2019-07-07 08:30)
DX: D24.2 Benign neoplasm of left breast (principal); K21.9 Gastro-esophageal reflux disease without esophagitis; E66.01 Morbid (severe) obesity due to excess calories; Z68.42 Body mass index [BMI] 45.0-49.9, adult; F32.9 Major depressive disorder, single episode, unspecified; Z88.0 Allergy status to penicillin
CPT/HCPCS: 36415; 88307; 82306; 71046; 76098; 19285; 19125; J2704; J2250; J3010; J1170 ×3; J7120; J2405 ×2; J0744; 88305

== ENCOUNTER 2023-02-24 16:45 | Emergency (ER) | payer OTHER ==
[2023-02-24] MEDS ORDERED: NA CHLORIDE 0.9% 1,000 ML ONE (18:34)
[2023-02-24 18:51] LABS: Hematocrit 43.2 % (36.0-45.0); Lymphocytes % 7.6 % (15.3-44.8); MCV 82.7 fL (80-100); MPV 9.1 fL (7.6-11.3); Platelets 355 thou/uL (152-406); RBC Red Blood Cell Count 5.22 M/uL (3.86-4.86)
[2023-02-24 19:07] LABS: Troponin High Sensitivity 8.1 pg/mL (<58.9)
--- NOTE | 2023-02-24 20:26 | RAD REPORT ---
EXAM DESCRIPTION: CT - Abdomen Pelvis W Contrast - 02/24/2023 7:29 pm CLINICAL HISTORY: ABD PAIN COMPARISON: Abdomen Pelvis W Contrast dated 05/19/2018; CT ABD PELVIS W CONTRAST dated 04/22/2014 TECHNIQUE: Thin cut axial CT imaging of the abdomen and pelvis was performed following intravenous a dministration of 100 mL Isovue 300. Multiplanar reformats were generated and reviewed. All CT scans are performed using dose optimization technique as appropriate and may include automated exposure control or mA/KV adjustment according to patient size. FINDINGS: No suspicious findings in the lung bases. The liver, spleen, adrenal glands, and pancreas show no suspicious findings. Gallbladder and biliary tree are also without suspicious finding. Symmetric renal function is seen with no hydronephrosis or suspicious renal mass. No dilated bowel loops or bowel wall thickening. No free air, free fluid or inflammatory stranding. N o hernia, mass or bulky lymphadenopathy. The urinary bladder is suboptimally distended limiting evalu ation. No suspicious bony findings. IMPRESSION: No acute intra-abdominal process.
--- NOTE | 2023-02-24 20:39 | EDPHYS ---
Physician Documentation [facility] Name: Nell Barrett Age: 62 yrs Sex: Female : 1960 Arrival Date: 02/24/2023 Time: 16:45 Bed 11 Private MD: ED Physician Chepe Lovelace HPI: 02/24 22:39 This 62 yrs old Female presents to ER via Ambulatory with complaints of Abdominal Pain, kb Hand Pain, Body Aches. 22:39 The patient presents with abdominal pain. Onset: The symptoms/episode began/occurred kb just prior to arrival. The symptoms do not radiate. Associated signs and symptoms: none. The symptoms are described as constant. Modifying factors: The symptoms are alleviated by nothing, the symptoms are aggravated by nothing. Severity of pain: At its worst the pain was moderate in the emergency department the pain is unchanged. The patient has not experienced similar symptoms in the past. The patient has not recently seen a physician. Pt reports she reached down to pickling grader her phone furnace charger and got electrocuted by it. States she has developed muscle aches and abd pain since then. Denies chest pain, fever, palpitations, n/v/d, urinary symptoms. Historical: - Allergies: 17:01 PENICILLINS; mb9 - PMHx: 17:01 ADD/ADHD; Anxiety; allergies; Depression; GERD; PTSD; mb9 - PSHx: 17:01 None; mb9 - Immunization history:: Adult Immunizations up to date. - Social history:: Smoking status: unknown. ROS: 22:38 Constitutional: Negative for fever, chills, and weight loss, kb 22:38 Abdomen/GI: Positive for abdominal pain, 22:38 MS/extremity: Positive for erythema, pain, of the right arm, 22:38 All other systems are negative, Exam: 17:11 Constitutional: This is a well developed, well nourished patient who is awake, alert, kb and in no acute distress. Head/Face: Normocephalic, atraumatic. ENT: Moist Mucous membranes Cardiovascular: Regular rate Respiratory: Respirations even and unlabored. No increased work of breathing. Talking in full sentences Skin: Warm, dry with normal turgor. Normal color. MS/ Extremity: Pulses equal, no cyanosis. Neurovascular intact. Full, normal range of motion. Neuro: Awake and alert, GCS 15, oriented to person, place, time, and situation. Moves all extremities. Normal gait. 17:11 ECG was reviewed by the Attending Physician. 17:11 Abdomen/GI: Inspection: abdomen appears normal, Bowel sounds: normal, Palpation: soft, in all quadrants, mild abdominal tenderness, in the left lower quadrant, Vital Signs: 16:59 BP 123 / 75; Pulse 98; Resp 18; Temp 98.8; Pulse Ox 99% on R/A; Weight 117.03 kg; mb9 Height 5 ft. 8 in. ; 19:15 BP 108 / 66; Pulse 89; Resp 18; Pulse Ox 97% on R/A; eh3 16:59 Body Mass Index 39.23 (117.03 kg, 172.72 cm) mb9 MDM: 16:54 Patient medically screened. kb 22:40 Data reviewed: vital signs, nurses notes. kb 22:40 Differential diagnosis: Cholelithiasis, diverticulitis, gastritis, non-specific abd kb pain, arrhythmia, rhabdomyolysis, electrocution. Counseling: I had a detailed discussion with the patient and/or guardian regarding the historical points, exam findings, and any diagnostic results supporting the discharge/admit diagnosis, lab results, radiology results, the need for outpatient follow up, a family practitioner, to return to the emergency department if symptoms worsen or persist or if there are any questions or concerns that arise at home. ED course: Pt educated on all results. States she needs to get going because her daughter needs to go to bed and is her ride. States she just wanted to make sure everything was good because she has a colonoscopy scheduled for and didn't want to go if something was wrong. 02/24 17:05 Order name: Basic Metabolic Panel; Complete Time: 19:07 kb 02/24 17:05 Order name: CBC with Diff; Complete Time: 19:04 kb 02/24 17:05 Order name: Troponin HS; Complete Time: 19:07 kb 02/24 17:05 Order name: CPK; Complete Time: 19:07 kb 02/24 17:05 Order name: CT Abd/Pelvis - IV Contrast Only; Complete Time: 20:30 kb 02/24 17:05 Order name: EKG; Complete Time: 17:05 kb 02/24 17:05 Order name: Cardiac monitoring; Complete Time: 20:08 kb 02/24 17:05 Order name: EKG - Nurse/Tech; Complete Time: 17:10 kb 02/24 17:05 Order name: IV Saline Lock; Complete Time: 20:08 kb 02/24 17:05 Order name: Labs collected and sent; Complete Time: 20:08 kb 02/24 17:05 Order name: O2 Per Protocol; Complete Time: 20:08 kb 02/24 17:05 Order name: O2 Sat Monitoring; Complete Time: 20:08 kb EC:11 Rate is 100 beats/min. Rhythm is regular. QRS [place] is Normal. [place] interval is normal at kb 126 msec. QRS interval is normal at 88 msec. QT interval is normal at 415 msec. Administered Medications: 19:15 Drug: NS 0.9% IV 1000 ml IV at 1000 ml once Route: IV; Rate: 1000 ml; Site: left eh3 antecubital; 20:50 Follow up: IV Status: Completed infusion; IV Intake: 800ml [facility] Disposition: 02/25 12:10 Co-signature as Attending Physician, Chepe Lovelace MD I reviewed the patient's care rn provided by the Advanced Practice Provider and agree with the diagnosis and treatment plan. Disposition Summary: 02/24/23 20:38 Discharge Ordered Notes: Location: Home kb Condition: Stable kb Diagnosis - Lower abdominal pain, unspecified kb - Electrocution, initial encounter kb Followup: kb - With: Emergency Department - When: As needed - Reason: Worsening of condition Followup: kb - With: Private Physician - When: 2 - 3 days - Reason: Recheck today's complaints, Continuance of care, Re-evaluation by your physician Discharge Instructions: - Discharge Summary Sheet kb - Electric Shock Injury kb Forms: - Medication Reconciliation Form kb - Thank You Letter kb - Antibiotic Education kb - Prescription Opioid Use kb - Patient Portal Instructions kb - Leadership Thank You Letter kb Signatures: Dispatcher [employer] Mary Betancourt FNP-C FNP-Chepe Vogel MD MD rn Hall, Erin, RN RN 3 Evelyne Elaine RN RN 9
--- NOTE | 2023-02-24 20:39 | ER ---
Nurse's Notes [facility] Name: Nell Barrett Age: 62 yrs Sex: Female : 1960 Arrival Date: 02/24/2023 Time: 16:45 Bed 11 Private MD: Diagnosis: Lower abdominal pain, unspecified;Electrocution, initial encounter Presentation: 02/24 16:59 Chief complaint: Patient states: "Friday night I went to unplug a hot metal charger from the mb9 wall and my metal bracelet connected with me and I got shocked. I have body aches, my throat is sore, and my right hand hurts.". Coronavirus screen: Vaccine status: Patient reports receiving the 2nd dose of the covid vaccine. Ebola Screen: No symptoms or risks identified at this time. Initial Sepsis Screen: Does the patient meet any 2 criteria? No. Patient's initial sepsis screen is negative. Does the patient have a suspected source of infection? No. Patient's initial sepsis screen is negative. Risk Assessment: Do you want to hurt yourself or someone else? Patient reports no desire to harm self or others. Onset of symptoms was 2022. 16:59 Method Of Arrival: Ambulatory 9 16:59 Acuity: IRVIN 3 mb9 Triage Assessment: 17:02 General: Appears in no apparent distress. Behavior is anxious. Pain: Complains of pain mb9 in right hand Pain radiates to right arm. Pain: Complains of pain in entire body Quality of pain is described as aching. EENT: No signs and/or symptoms were reported regarding the EENT system. Neuro: [place] Agitation-Sedation Scale (RASS): 0 - Alert and Calm Level of Consciousness is awake, alert, obeys commands, Oriented to person, place, time, situation, Appropriate for age. Cardiovascular: Patient's skin is warm and dry. Respiratory: Airway is patent Respiratory effort is even, unlabored, Respiratory pattern is regular, symmetrical, Breath sounds are clear bilaterally. GI: Abdomen is round non-distended. : No signs and/or symptoms were reported regarding the genitourinary system. Derm: Skin is pink, warm \\T\\ dry. Musculoskeletal: Range of motion: intact in all extremities. Historical: - Allergies: 17:01 PENICILLINS; mb9 - PMHx: 17:01 ADD/ADHD; Anxiety; allergies; Depression; GERD; PTSD; mb9 - PSHx: 17:01 None; mb9 - Immunization history:: Adult Immunizations up to date. - Social history:: Smoking status: unknown. Screenin:[facility] ED Fall Risk Assessment (Adult) Score/Fall Risk Level 0 - 2 = Low Risk. Abuse eh3 screen: Denies threats or abuse. Denies injuries from another. Nutritional screening: No deficits noted. Tuberculosis screening: No symptoms or risk factors identified. Assessment: 17:07 Reassessment: EKG done in triage. mb9 19:15 General: Appears in no apparent distress. Behavior is calm, cooperative. Pain: eh3 Complains of pain in abdomen and right hand. Neuro: Level of Consciousness is awake, alert, obeys commands, Oriented to person, place, time, situation. Cardiovascular: Capillary refill < 3 seconds Patient's skin is warm and dry. Respiratory: Airway is patent Respiratory effort is even, unlabored, Respiratory pattern is regular, symmetrical. GI: Abdomen is round non-distended, Bowel sounds present X 4 quads. Abd is soft and non tender X 4 quads. Derm: Skin is pink, warm \\T\\ dry. Musculoskeletal: Circulation, motion, and sensation intact. Vital Signs: 16:59 BP 123 / 75; Pulse 98; Resp 18; Temp 98.8; Pulse Ox 99% on R/A; Weight 117.03 kg; mb9 Height 5 ft. 8 in. ; 19:15 BP 108 / 66; Pulse 89; Resp 18; Pulse Ox 97% on R/A; eh3 16:59 Body Mass Index 39.23 (117.03 kg, 172.72 cm) mb9 ED Course: 16:52 Patient arrived in ED. mg5 16:54 [facility] Salazar [facility]-C [facility] kb 16:54 Chepe Lovelace MD is Attending Physician. kb 16:59 Arm band placed on. mb9 17:01 Triage completed. mb9 18:36 Inserted saline lock: 20 gauge in left antecubital area, using aseptic technique. Blood iw collected. 18:36 CPK Sent. iw 18:36 Basic Metabolic Panel Sent. iw 18:36 CBC with Diff Sent. iw 18:36 Troponin HS Sent. iw 19:15 Patient has correct armband on for positive identification. Bed in low position. Call 3 light in reach. Side rails up X2. Provided Education on: Use of call matthews. Client placed on continuous cardiac and pulse oximetry monitoring. NIBP monitoring applied. 19:31 CT Abd/Pelvis - IV Contrast Only In Process Unspecified. EDMS 20:00 Isabell Hare, RN is Primary Nurse. eh3 20:50 No provider procedures requiring assistance completed. IV discontinued, intact, eh3 bleeding controlled, No redness/swelling at site. Pressure dressing applied. Administered Medications: 19:15 Drug: NS 0.9% IV 1000 ml IV at 1000 ml once Route: IV; Rate: 1000 ml; Site: left eh3 antecubital; 20:50 Follow up: IV Status: Completed infusion; IV Intake: 800ml eh3 Medication: 20:50 VIS not applicable for this client. eh3 Intake: 20:50 IV: 800ml; Total: 800ml. eh3 Outcome: 20:38 Discharge ordered by MD. kb 20:50 Discharged to home via wheelchair, 3 20:50 Condition: stable 20:50 Discharge instructions given to patient, Instructed on discharge instructions, follow up and referral plans. Demonstrated understanding of instructions, follow-up care, 20:51 Patient left the ED. eh3 Signatures: Dispatcher [employer] EDWA Mary Salazar, STORE TEAM LEADER-C STORE TEAM LEADER-Khadra Burks, HODA DRUMMOND Isabell Hare, RN RN 3 Evelyne Elaine RN RN Lucia Payton mg5 Corrections: (The following items were deleted from the chart) 17:03 16:59 Acuity: IRVIN 4 mb9 mb9
[2023-02-24 21:13] VITALS: TEMP 98.8
[2023-02-24 21:14] VITALS: BP 108/66; O2SAT 97
--- NOTE | 2023-02-25 11:42 | EKG ---
Test Date: 2023-02-24 Test Time: 17:09:39 Sausage Machine Operator: MILTON MEASUREMENT RESULTS: Intervals: Rate: 100 IN: 126 QRSD: 88 QT: 322 QTc: 415 [place]: P: 66 IN: 126 QRS: 19 T: 69 INTERPRETIVE STATEMENTS: Normal sinus rhythm Septal infarct, age undetermined Abnormal ECG Compared to ECG 08/24/2022 16:14:55 Myocardial infarct finding now present Electronically Signed On 02-25-23 11:40:00 CDT by Alex Lara
== END 2023-02-24 20:51 | disposition home or self-care (01) ==
LOC: ER 16:45
DX: R10.30 Lower abdominal pain, unspecified (principal); T75.4XXA Electrocution, initial encounter; M79.601 Pain in right arm; Z88.0 Allergy status to penicillin
CPT/HCPCS: 96361; 93005; 85025; 80048; 36415; 82550; 84484; 74177; 96360; 99284; Q9967; J7030